=== PATIENT | male | born 1995 | race Asian ===

== ENCOUNTER 2017-02-06 16:55 | Emergency (ER) | payer OTHER ==
[~2017-02-06] VITALS: Ht 185.4 cm; Wt 94.0 kg
[2017-02-06 17:02] VITALS: TEMP 36.7; Ht 185.4 cm; Wt 94.0 kg
--- NOTE | 2017-02-06 18:08 | EMERGENCY ROOM VISIT NOTE ---
History Report prepared by Nimco: Papa Carlos Under the Supervision of: Dr. Yossi Brock M.D. First contact with patient: 17:12 Chief Complaint: HEADACHE Stated Complaint: HEADACHE, VOMITING History of Present Illness The patient is a 21 year old male who presents to the Emergency Room with complaints of an intermittent headache that started two weeks ago. He rates his pain as a 2/10 in severity. The patient states that his headache has been worse the last three days. The patient states that the first time he had his headache , he was sleeping, and the second time he was in an information session for a job. He reports that he has been experiencing nausea and vomited yesterday due to his symptoms. The patient states that he took Aleve three days and two days ago and admits his symptoms were mildly relieved. He reports that he took Advil yesterday, but denies any relief of pain. The patient states that he also noticed that he has been experiencing pain behind his eyes three days ago. He reports that whenever he would press his eye, he would experience pain. He denies any vision changes. The patient states that he has been stressed recently due to school. He reports that he has not had any alcohol for a month. The patient denies any fever, neck pain, hitting his head, weakness, numbness, sick contact, recent travel, trauma, and trouble walking. Source of History: patient Onset: two weeks ago Position: head Symptom Intensity: 2/10 Quality: ache Timing: intermittent Modifying Factors (Relieving): other (Aleve) Associated Symptoms: + nausea, + vomiting, No fevers, No neck pain, No weakness, No numbness Review of Systems See HPI for pertinent positives & negatives. A total of 10 systems reviewed and were otherwise negative. Past Medical & Surgical Medical Problems: (1) No pertinent past medical history Old medical records were reviewed. Nurse's notes were reviewed and I agree with. Family History Patient reports no known family medical history. Social History Smoking Status: Never Smoker Alcohol Use: occasionally Drug Use: none Marital Status: in relationship Housing Status: lives with roommate Occupation Status: [employer] student Current/Historical Medications No Active Prescriptions or Reported Meds Allergies Coded Allergies: No Known Allergies (Unverified , 02/06/17) Physical Exam Vital Signs Date Time Temp Pulse Resp B/P (MAP) Pulse Ox O2 Delivery O2 Flow Rate FiO2 02/06/17 18:35 82 129/81 97 02/06/17 17:02 36.7 79 16 131/85 97 Room Air Physical Exam General: Non-ill appearing young male in no acute distress. HEENT: Normal cephalic atraumatic. Pupils are equal round and reactive to light. Extraocular movements are intact. Oropharynx is pink with moist mucous membranes. No swelling of the mouth lips or tongue. Neck: Supple with a midline trachea. No meningeal signs or stiffness, no JVD or bruits. No Stridor. Chest: Clear to auscultation bilaterally. No wheezes or rhonchi. No increased work of breathing. Heart: regular rate and rhythm. Abdomen: Soft nontender, nondistended without rebound guarding or rigidity. Extremities: No cyanosis clubbing or edema. No calf tenderness or assymetry Spine/Back. Non tender to palpation. No CVA tenderness Skin: Good turgor without rashes. Neurologic exam: Cranial nerves two through 12 are intact. Motor and sensation are intact and symmetrical throughout. No tremor. Finger to nose intact. Medical Decision & Procedures ER Provider Diagnostic Interpretation: CT results as stated below per my review and radiologist interpretation: HEAD CT NONCONTRAST CT DOSE: 537.48 mGy.cm HISTORY: Headache. TECHNIQUE: Multiaxial CT images of the head were performed without the use of intravenous contrast. Automated exposure control was utilized for this study. A dose lowering technique was utilized adhering to the principles of ALARA. Comparison: None. Findings: The paranasal sinuses and mastoid air cells are clear. The calvarium and skull base are intact. The ventricles and sulci are within normal limits. There is no mass, hematoma, midline shift, or acute infarct. Impression: No acute intracranial abnormality. Electronically signed by: Maldonado Castillo M.D. 02/06/2017 6:08 PM Dictated Date/Time: 02/06/2017 6:03 PM ED Course 1712: Past medical records reviewed. The patient was evaluated in room B06, and a complete history and physical examination were performed. 1820: Upon reevaluation, the patient is resting comfortably. I discussed the results and treatment plan with him. The patient verbalized agreement of the treatment plan. The patient was discharged home. Medical Decision Differentials include, but are not limited to; migraine, intracranial process, tension headache, trauma, aneurysm, meningitis. This patient comes in as described above. he has had intermittent headaches for about 2 weeks. The pain does not start suddenly. It does hurt behind his eye. He has had some stress lately. He looks great and is asymptomatic at present. He has a normal neurologic exam. He's had no signs to suggest meningitis or encephalitis. He has had no fever or chills. There is been no trauma. There is nothing to suggest toxicologic process. CAT scan of his head was obtained and it was unremarkable. There is no evidence to suggest mass or stroke or hemorrhage. I think this may be more tension or even cluster headaches. The patient can use ibuprofen. Follow up with the [facility] and return if: headaches different than typical, worsening of symptoms, any new problems or concerns. If the headaches persist, he may need further workup or referral to neurology. Medication Reconcilliation Current Medication List: was personally reviewed by me Blood Pressure Screening Patient's blood pressure: Elevated blood pressure Blood pressure disposition: Elevated BP felt to be situational Impression Primary Impression: Headache Scribe Attestation The scribe's documentation has been prepared under my direction and personally reviewed by me in its entirety. I confirm that the note above accurately reflects all work, treatment, procedures, and medical decision making performed by me. Departure Information Dispostion Home / Self-Care Prescriptions No Active Prescriptions or Reported Meds Referrals No Doctor, Assigned (PCP) Forms HOME CARE DOCUMENTATION FORM, IMPORTANT VISIT INFORMATION Patient Instructions My [facility] Additional Instructions Rest. Drink plenty of fluids. May use ibuprofen 400 mg every 6 hours if needed for head pain Return if: Worsening of symptoms, headaches worse or different, fever or chills , numbness weakness, any new problems or concerns Follow-up with the [facility] this week. If your symptoms persist or get worse, you may ultimately need to see a neurologist
[2017-02-06 18:35] VITALS: BP 129/81; PULSE 82; O2SAT 97
== END 2017-02-06 18:37 | disposition home or self-care (01) ==
LOC: C.EDB 16:57
DX: R51 Headache (principal); R03.0 Elevated blood-pressure reading, without diagnosis of hypertension